=== PATIENT | female | born 1980 | race Caucasian/White ===

== ENCOUNTER 2018-04-28 11:02 | Emergency (ER) | payer BC ==
[2018-04-28 11:07] VITALS: BMI 19.4
[2018-04-28 11:11] VITALS: RESP 16; O2SAT 100
[2018-04-28] MEDS ORDERED: Sodium Chloride 0.9% 1,000 ML IV STA (12:21)
--- NOTE | 2018-04-28 13:31 | CT ---
Date of service: 04/28/2018 PROCEDURE: CT HEAD WITHOUT CONTRAST. HISTORY: syncope with head trauma COMPARISON: None available. TECHNIQUE: Axial computed tomography images were obtained through the head/brain without intravenous contrast. Radiation dose: Total exam DLP = 630.2 mGy-cm. This CT exam was performed using one or more of the following dose reduction techniques: Automated exposure control, adjustment of the mA and/or kV according to patient size, and/or use of iterative reconstruction technique. FINDINGS: HEMORRHAGE: No intracranial hemorrhage. BRAIN: No mass effect or edema. No atrophy or chronic microvascular ischemic changes. VENTRICLES: Unremarkable. No hydrocephalus. CALVARIUM: Unremarkable. PARANASAL SINUSES: Unremarkable as visualized. No significant inflammatory changes. MASTOID AIR CELLS: Unremarkable as visualized. No inflammatory changes. OTHER FINDINGS: None. IMPRESSION: Normal CT of the Head.
[2018-04-28 14:24] LABS: BASO # 0.1 K/uL (0.0-0.2); BASO % 0.6 % (0.0-2.0); HEMOGLOBIN 13.2 g/dL (12.0-16.0); LYMPH # 1.9 K/uL (1.0-4.3); LYMPH % 12.6 % (20.0-40.0); MEAN CELL VOLUME 88.4 fl (81.0-99.0); MEAN CORPUSCULAR HEMOGLOBIN 29.2 pg (27.0-31.0); MEAN PLATELET VOLUME 6.9 fl (7.2-11.7); MONO # 0.8 K/uL (0.0-0.8); MONO % 5.4 % (0.0-10.0); NEUT # 12.3 K/uL (1.8-7.0); NEUT % 81.4 % (50.0-75.0); NRBC % 0.2 % (0.0-0.0); RBC 4.52 Mil/uL (3.80-5.20); RED CELL DISTRIBUTION WIDTH 12.7 % (11.5-14.5); WHITE BLOOD COUNT 15.1 K/uL (4.8-10.8)
[2018-04-28 14:32] LABS: SQUAMOUS EPITHIAL < 1 /hpf (0-5); URINE BACTERIA OCC (<OCC); URINE BILIRUBIN NEGATIVE (NEGATIVE); URINE BLOOD SMALL (NEGATIVE); URINE CLARITY CLEAR (Clear); URINE COLOR STRAW (YELLOW); URINE GLUCOSE (UA) NEG (NEGATIVE); URINE LEUKOCYTE ESTERASE NEG Leu/uL (Negative); URINE PROTEIN NEGATIVE (NEGATIVE); URINE UROBILINOGEN 0.2-1.0 mg/dL (0.2-1.0)
[2018-04-28 14:38] LABS: BLOOD UREA NITROGEN 10 mg/dl (7-17); CALCIUM 10.2 mg/dL (8.4-10.2); GFR NON-AFRICAN AMERICAN > 60
--- NOTE | 2018-04-28 14:43 | ED PDOC ---
Syncope/Near Syncope/Dizziness Time Seen by Provider: 04/28/18 11:42 Chief Complaint (Nursing): Headache Chief Complaint (Provider): Headache History Per: Patient History/Exam Limitations: no limitations Current Symptoms Are (Timing): Still Present Additional Complaint(s): Laney Son is a 37 year old female with no past medical history, who presents to the emergency department after a syncopal episode at home just prior to arrival. Patient states she has been having dizziness, which has been on and off for the past x3 months and today she felt as though the room was spinning. She ended up falling and hitting her nose and completely losing consciousness. The fall was witnessed by her , who states she was unconscious for several minutes and that she had some shaking during the episode. Patient states she has no recollection of the episode and denies having any pain to face or neck. She reports to still have dizziness but denies nausea, vomiting, diarrhea or . PMD: Jasiel Sim Past Medical History Reviewed: Historical Data, Nursing Documentation, Vital Signs Vital Signs: Last Vital Signs Temp 97.8 F 04/28/18 11:08 Pulse 83 04/28/18 11:08 Resp 16 04/28/18 11:08 BP 106/67 04/28/18 11:08 Pulse Ox 100 04/28/18 11:08 - Medical History PMH: No Chronic Diseases - Surgical History Surgical History: No Surg Hx - Family History Family History: States: Unknown Family Hx - Home Medications Home Medications: Ambulatory Orders Medication Instructions Recorded RX: No Known Home Med 04/28/18 - Allergies Allergies/Adverse Reactions: Allergies Allergy/AdvReac Type Severity Reaction Status Date / Time No Known Allergies Allergy Verified 04/28/18 11:23 Review of Systems ROS Statement: Except As Marked, All Systems Reviewed And Found Negative Gastrointestinal: Negative for: Nausea, Vomiting, Diarrhea Neurological: Positive for: Dizziness, Other (shaking) Physical Exam - Reviewed Nursing Documentation Reviewed: Yes Vital Signs Reviewed: Yes - Physical Exam Appears: Positive for: Non-toxic, No Acute Distress (tired and weak) Head Exam: Positive for: ATRAUMATIC, NORMOCEPHALIC Skin: Positive for: Normal Color, Warm, Dry Eye Exam: Positive for: EOMI, PERRL ENT: Positive for: Other (mild erythema to the nose; (-) tenderness to palpation of the nose; (-) movement to facial bones) Neck: Positive for: Normal, Painless ROM, Supple Cardiovascular/Chest: Positive for: Regular Rate, Rhythm. Negative for: Murmur Respiratory: Positive for: Normal Breath Sounds. Negative for: Respiratory Distress Gastrointestinal/Abdominal: Positive for: Normal Exam, Soft. Negative for: Tenderness Back: Positive for: Normal Inspection. Negative for: L CVA Tenderness, R CVA Tenderness, Vertebral Tenderness Extremity: Positive for: Normal ROM. Negative for: Pedal Edema, Deformity Neurologic/Psych: Positive for: Alert, magician/illusionist II-XII (grossly intact), Oriented. Negative for: Motor/Sensory Deficits - Laboratory Results Result Diagrams: 04/28/18 13:48 04/28/18 13:48 - ECG O2 Sat by Pulse Oximetry: 100 (RA) Pulse Ox Interpretation: Normal Medical Decision Making Medical Decision Making: Time: 1218 A/P: Work up for syncopal episodes, labs, CT brain, IV fluids, Reglan, and Tylenol, and reassess patient. --EKG --BMP --CBC with differential --Toradol 15 mg IVP --Reglan 10 mg IVP --Sodium chloride 1,000 ml --Urinalysis --CT head without contrast Time: 1526 --Patient's symptoms have resolved and patient is feeling better. Patient's labs show elevated white blood count but no sores are suspected. --CT brain shows no abnormalities --Patient has been instructed to follow up with PMD and already has a referral for a neurologist. --Patient instructed to return if symptoms return and further return parameters were discussed. Scribe Attestation: Documented by Van Carson, acting as a scribe for Marifer Hernandez MD. Provider Scribe Attestation: All medical record entries made by the Scribe were at my direction and personally dictated by me. I have reviewed the chart and agree that the record accurately reflects my personal performance of the history, physical exam, medical decision making, and the department course for this patient. I have also personally directed, reviewed, and agree with the discharge instructions and disposition. Disposition - Clinical Impression Clinical Impression: Syncope and collapse - Disposition Referrals: Jean Nassar MD [Medical Doctor] - Disposition Time: 15:26 Condition: IMPROVED Additional Instructions: Follow up with primary medical doctor and neurology. Return to the emergency department if symptoms worsen or if new symptoms develop. Instructions: Syncope (Fainting) Forms: [facility] (Tajik) Print Language: MARSHALLESE
[2018-04-28 15:44] VITALS: BP 112/77; PULSE 88; TEMP 97.7
--- NOTE | 2018-04-29 16:14 | CARD ---
APPROVED REPORT Date of service: 04/28/2018 EKG Measurement Heart [id number] <Conclusion> Normal sinus rhythm Normal ECG
== END 2018-04-28 15:39 | disposition home or self-care (01) ==
LOC: H.ER 11:02
DX: R55 Syncope and collapse (principal); S09.90XA Unspecified injury of head, initial encounter; W19.XXXA Unspecified fall, initial encounter; Y92.89 Other specified places as the place of occurrence of the external cause; D72.829 Elevated white blood cell count, unspecified
CPT/HCPCS: 70450; 80048; 81003; 81025; 82948; 85025; 93005; 96361; 96374; 96375; 99285; J1885; J2765; J7030